=== PATIENT | male | born 1960 | race Two or more races ===

== ENCOUNTER 2019-06-01 13:30 | Outpatient (CLI) | payer OTHER | END 2019-06-01 13:38 | disposition home or self-care (01) | LOC: SONOGRAMA 13:30 → MAMO-SONO 14:15 | DX: N28.1 Cyst of kidney, acquired (principal); N43.2 Other hydrocele ==

== ENCOUNTER 2019-08-02 06:41 | Outpatient (CLI) | payer OTHER ==
[2019-08-02] MEDS ORDERED: TRICOR145 MG (08:29)
[2019-08-02] MEDS ORDERED: HYZAAR 100-12.1 EACH (08:29)
[2019-08-02] MEDS ORDERED: LIPITOR 10MG (08:29)
[2019-08-02] MEDS ORDERED: HYDRALAZINE HCL25 MG (08:29)
[2019-08-02] MEDS ORDERED: CLONAZEPAM1 MG (08:30)
[2019-08-02] MEDS ORDERED: PROTONIX40 MG (08:30)
[2019-08-02] MEDS ORDERED: PLAVIX75 MG (08:30)
[2019-08-02] MEDS ORDERED: GABAPENTIN600 MG (08:31)
== END 2019-08-02 06:52 | disposition home or self-care (01) ==
LOC: LAB 06:41
DX: N18.1 Chronic kidney disease, stage 1 (principal)

== ENCOUNTER 2019-08-09 04:55 | Day surgery (SDC) | payer OTHER ==
[~2019-08-09 04:55] MED LIST: CLONAZEPAM1 MG; GABAPENTIN600 MG; HYDRALAZINE HCL25 MG; HYZAAR 100-12.1 EACH; LIPITOR 10MG; PLAVIX75 MG; PROTONIX40 MG; TRICOR145 MG
== END 2019-08-09 11:45 | disposition home or self-care (01) ==
LOC: CIR.AMB 04:55
DX: N43.2 Other hydrocele (principal)

== ENCOUNTER 2020-10-08 14:02 | Outpatient (CLI) | payer OTHER | END 2020-10-08 14:20 | disposition home or self-care (01) | LOC: SONOGRAMA 14:02 | PROVIDERS: ATTEND Urology | DX: I86.1 Scrotal varices (principal); N43.2 Other hydrocele; N50.89 Other specified disorders of the male genital organs; N28.1 Cyst of kidney, acquired; N43.3 Hydrocele, unspecified; N45.3 Epididymo-orchitis ==